=== PATIENT | male | born 1975 | race Caucasian/White ===

== ENCOUNTER 2019-12-19 22:10 | Emergency (ER) | payer BC ==
--- NOTE | 2019-12-19 22:32 | EDM.PDOC ---
ED HPI GENERAL MEDICAL PROBLEM - General Chief Complaint: Chest Pain Stated Complaint: CHEST PAIN,LEFT ARM NUMBNESS AND DIFFICULTY IN [place] Time Seen by Provider: 12/19/19 22:30 Source of Information: Reports: Patient History Limitations: Reports: No Limitations - History of Present Illness INITIAL COMMENTS - FREE TEXT/NARRATIVE: 44-year-old male presents to the ED after experiencing acute onset of central sharp stabbing chest pain about an hour prior to arrival. Her portion of the pain lasted a good 5 minutes or more. Blood pressure was checked by his who is a nurse and has been running a little bit high. It was markedly elevated of course after he developed chest pain. 172 systolic over 100. He states he was not doing anything at the time the pain came on. Associated symptoms were numbness and tingling in his left arm and hand which are still present but are much less intense at this time pain was piercing like he had been shot by an arrow. He does not recall it going through his back however. Denies cough or sputum production. No fever or chills. Reports he is just generally not been feeling well for about 2 weeks. States he is lost all of his energy. Came home from work early today because he was feeling ill. He has been getting intermittent nausea not necessarily made worse or better by eating. He can come at any time. Is not aware of any increased heartburn or GERD symptoms lately. Stools have been normal. No fever or chills. At the time he was seen in the ED his chest pain was pretty well gone. Triage had done an ECG which shows sinus rhythm at 73/min with borderline left ventricular appear to be pattern with a day fix early repolarization pattern but no signs of ischemia. Onset: Today, Sudden Onset Date: 12/19/19 Onset Time: 21:40 Duration: Minutes:, Improving Location: Reports: Chest (Pain had pretty well been gone at the time of my examination. Onset of such middle sharp stabbing chest pain with no radiation.) Quality: Reports: Sharp, Stabbing Severity: Severe (Rates it as an out of 10.) Improves with: Reports: None Worsens with: Reports: None Context: Denies: Activity, Exercise, Lifting, Sick Contact, Trauma, Other Associated Symptoms: Reports: Loss of Appetite, Malaise, Nausea/Vomiting, Shortness of Breath (Social with the severity of the chest pain.), Weakness. Denies: Cough, cough w sputum, Diaphoresis (Nausea without vomiting), Fever/Chills, Headaches, Rash, Seizure, Syncope Treatments [employer]PERINTENDENT: Reports: Other (see below) (None.) Mid-Sternal Chest Pain Score (Numeric/FACES): 3 - Related Data Allergies Allergy/AdvReac Type Severity Reaction Status Date / Time Sulfa (Sulfonamide Allergy Headache Verified 12/19/19 22:18 Antibiotics) Home Meds: Home Meds . [No Known Home Meds] 12/19/19 [History] Past Medical History - Past Surgical History Neurological Surgical History: Reports: Discectomy Social & Family History - Tobacco Use Smoking Status *Q: Former Smoker Used Tobacco, but Quit: Yes Month/Year Tobacco Last Used: 2017 - Recreational Drug Use Recreational Drug Use: No - Living Situation & Occupation Living situation: Reports: Occupation: Employed ED ROS GENERAL - Review of Systems Review Of Systems: See Below Constitutional: Reports: Malaise, Fatigue, Decreased Appetite. Denies: Fever, Chills, Weight Loss HEENT: Reports: Glasses. Denies: Hearing Loss, Nosebleed, Nose Pain, Throat Swelling Respiratory: Reports: Shortness of Breath. Denies: Wheezing, Pleuritic Chest Pain, Cough, Sputum, Hemoptysis, Other Cardiovascular: Reports: Chest Pain, Lightheadedness. Denies: Blood Pressure Problem (Tonight experienced sharp stabbing chest pain as mentioned in history of present illness.), Claudication, Dyspnea on Exertion, Edema, Orthopnea, Palpitations Endocrine: Reports: Fatigue GI/Abdominal: Reports: Decreased Appetite, Nausea (Intermittent nausea.) : Reports: No Symptoms Musculoskeletal: Reports: Back Pain (Previous L-spine discectomy.) Skin: Reports: No Symptoms Neurological: Reports: No Symptoms, Numbness, Tingling Psychiatric: Reports: No Symptoms Hematologic/Lymphatic: Reports: No Symptoms Immunologic: Reports: No Symptoms (Paresthesias left arm and hand associate with the development of the sharp stabbing chest pain tonight.) ED EXAM, GENERAL - Physical Exam Exam: See Below Exam Limited By: No Limitations General Appearance: Alert, WD/WN, Anxious, Moderate Distress, Other (Temperature is 35.8. Heart rate 80 in sinus respiratory is 12 O2 sats 100% on room air. Current blood pressure is elevated 164 114.) Eye Exam: Bilateral Eye: Normal Inspection, PERRL Throat/Mouth: Normal Inspection, Normal Lips, Normal Teeth, Normal Oropharynx Head: Atraumatic, Normocephalic Neck: Normal Inspection, Supple, Non-Tender, Full Range of Motion. No: Carotid Bruit, Lymphadenopathy (L), Lymphadenopathy (R), Thyromegaly Respiratory/Chest: No Respiratory Distress, Lungs Clear, Normal Breath Sounds, No Accessory Muscle Use, Chest Non-Tender Cardiovascular: Normal Peripheral Pulses, Regular Rate, Rhythm, No Edema, No Gallop, No Murmur, No Rub, Other (I could not elicit any chest wall pain upon palpation of anterior ribs or sternum.) Peripheral Pulses: 3+: Carotid (L), Carotid (R), Posterior Tibial (L), Posterior Tibial (R), Dorsalis Pedis (L), Dorsalis Pedis (R) GI/Abdominal: Normal Bowel Sounds, Soft, Non-Tender, No Organomegaly, No Distention, No Abnormal Bruit, No Mass, Pelvis Stable, Other (No surgical scars.) Back Exam: Normal Inspection, Full Range of Motion. No: CVA Tenderness (L), CVA Tenderness (R) Extremities: Normal Inspection, Normal Range of Motion, Non-Tender, No Pedal Edema Neurological: Alert, Oriented, CN II-XII Intact, Normal Cognition Psychiatric: Anxious Skin Exam: Warm, Dry, Intact, Normal Color, No Rash EKG INTERPRETATION EKG Date: 12/19/19 Time: 10:22 Rhythm: NSR Rate (Beats/Min): 73 Mora: Normal P-Wave: Present QRS: Other ST-T: Other (Order line criteria for left ventricular hypertrophy. Fuhs early repolarization pattern with no signs of ischemia) QT: Normal EKG Interpretation Comments: Borderline ECG with no signs of ischemia. Course - Vital Signs Last Recorded V/S: Last Vital Signs Temp 35.8 C L 12/19/19 22:19 Pulse 80 12/19/19 22:19 Resp 12 12/19/19 22:19 BP 164/114 H 12/19/19 22:19 Pulse Ox 100 12/19/19 22:19 - Orders/Labs/Meds Orders: Active Orders 24 hr Category Date Time Status EKG 12 Lead [EKG Documentation Completion] [RC] STAT Care 12/19/19 22:22 Active Chest 1V Frontal [CR] Stat Exams 12/19/19 22:31 Taken H.PYLORI ANTIGEN, STOOL [OP] Stat Lab 12/20/19 00:16 Ordered Sodium Chloride 0.9% [Normal Saline] 1,000 ml Med 12/19/19 22:45 Active IV ASDIRECTED Medication Orders Sodium Chloride (Normal Saline) 1,000 mls @ 125 mls/hr IV ASDIRECTED SALOME Last Admin: 12/19/19 22:37 Dose: 125 mls/hr Documented by: LORI Labs: Laboratory Tests 12/19/19 12/19/19 12/19/19 Range/Units 20:21 20:21 20:21 WBC 7.28 (4.23-9.07) K/mm3 RBC 5.23 (4.63-6.08) M/mm3 Hgb 15.9 (13.7-17.5) gm/dl Hct 46.5 (40.1-51.0) % MCV 88.9 (79.0-92.2) fl MCH 30.4 (25.7-32.2) pg MCHC 34.2 (32.2-35.5) g/dl RDW Std Deviation 40.0 (35.1-43.9) fL Plt Count 207 (163-337) K/mm3 MPV 10.1 (9.4-12.3) fl Neut % (Auto) 69.6 H (34.0-67.9) % Lymph % (Auto) 18.0 L (21.8-53.1) % [place] % (Auto) 10.0 (5.3-12.2) % Eos % (Auto) 1.6 (0.8-7.0) Baso % (Auto) 0.4 (0.1-1.2) % Neut # (Auto) 5.06 (1.78-5.38) K/mm3 Lymph # (Auto) 1.31 L (1.32-3.57) K/mm3 [place] # (Auto) 0.73 (0.30-0.82) K/mm3 Eos # (Auto) 0.12 (0.04-0.54) K/mm3 Baso # (Auto) 0.03 (0.01-0.08) K/mm3 PT 10.1 (9.7-12.0) SECONDS INR 0.94 APTT 27 (22-31) SECONDS Sodium 137 (136-145) mEq/L Potassium 3.9 (3.5-5.1) mEq/L Chloride 102 (98-107) mEq/L Carbon Dioxide 28 (21-32) mEq/L Anion Gap 10.9 (5-15) BUN 14 (7-18) mg/dL Creatinine 1.2 (0.7-1.3) mg/dL Est Cr Clr Drug Dosing 86.93 mL/min Estimated GFR (MDRD) > 60 (>60) mL/min BUN/Creatinine Ratio 11.7 L (14-18) Glucose 106 (74-106) mg/dL Calcium 9.2 (8.5-10.1) mg/dL Magnesium (1.8-2.4) mg/dl Total Bilirubin 0.4 (0.2-1.0) mg/dL AST 44 H (15-37) U/L ALT 86 H (16-63) U/L Alkaline Phosphatase 102 (46-116) U/L Creatine Kinase (39-308) U/L CK-MB (CK-2) (0-3.6) ng/ml Troponin I < 0.017 (0.00-0.056) ng/mL C-Reactive Protein (<1.0) mg/dL Total Protein 7.9 (6.4-8.2) g/dl Albumin 4.2 (3.4-5.0) g/dl Globulin 3.7 gm/dL Albumin/Globulin Ratio 1.1 (1-2) TSH 3rd Generation (0.358-3.74) uIU/mL 12/19/19 12/19/19 Range/Units 20:21 20:21 WBC (4.23-9.07) K/mm3 RBC (4.63-6.08) M/mm3 Hgb (13.7-17.5) gm/dl Hct (40.1-51.0) % MCV (79.0-92.2) fl MCH (25.7-32.2) pg MCHC (32.2-35.5) g/dl RDW Std Deviation (35.1-43.9) fL Plt Count (163-337) K/mm3 MPV (9.4-12.3) fl Neut % (Auto) (34.0-67.9) % Lymph % (Auto) (21.8-53.1) % [place] % (Auto) (5.3-12.2) % Eos % (Auto) (0.8-7.0) Baso % (Auto) (0.1-1.2) % Neut # (Auto) (1.78-5.38) K/mm3 Lymph # (Auto) (1.32-3.57) K/mm3 [place] # (Auto) (0.30-0.82) K/mm3 Eos # (Auto) (0.04-0.54) K/mm3 Baso # (Auto) (0.01-0.08) K/mm3 PT (9.7-12.0) SECONDS INR APTT (22-31) SECONDS Sodium (136-145) mEq/L Potassium (3.5-5.1) mEq/L Chloride (98-107) mEq/L Carbon Dioxide (21-32) mEq/L Anion Gap (5-15) BUN (7-18) mg/dL Creatinine (0.7-1.3) mg/dL Est Cr Clr Drug Dosing mL/min Estimated GFR (MDRD) (>60) mL/min BUN/Creatinine Ratio (14-18) Glucose (74-106) mg/dL Calcium (8.5-10.1) mg/dL Magnesium 1.9 (1.8-2.4) mg/dl Total Bilirubin (0.2-1.0) mg/dL AST (15-37) U/L ALT (16-63) U/L Alkaline Phosphatase (46-116) U/L Creatine Kinase 114 (39-308) U/L CK-MB (CK-2) 1.7 (0-3.6) ng/ml Troponin I (0.00-0.056) ng/mL C-Reactive Protein 0.6 (<1.0) mg/dL Total Protein (6.4-8.2) g/dl Albumin (3.4-5.0) g/dl Globulin gm/dL Albumin/Globulin Ratio (1-2) TSH 3rd Generation 2.600 (0.358-3.74) uIU/mL Meds: Medications Generic Name Dose Route Start Last Admin Trade Name Freq PRN Reason Stop Dose Admin Sodium Chloride 1,000 mls @ 125 mls/hr 12/19/19 22:45 12/19/19 22:37 Normal Saline IV 125 mls/hr ASDIRECTED SALOME Administration - Radiology Interpretation Free Text/Narrative:: 44-year-old male attends the ED tonight due to sudden onset of severe sharp stabbing central chest pain that occurred about an hour before arrival in the ED. He was not doing anything in particular at the time. Pain was very intense for good 5 minutes. Blood pressure was noted to be markedly elevated by his after this event. It remains elevated upon arrival in the ED at 164/114. Pain had just about gone away at the time I had seen him. He denies cough sputum production shortness of breath or having any asthma. No associated fever or chills. Examination reveals no ability to localize pain in the chest wall. Air entry is equal bilaterally with good lung sounds. ECG shows sinus rhythm at 73/min with no signs of ischemia. Plan routine labs including cardiac markers to be done. The patient has been feeling well for 2 or 3 weeks with fatigue intermittent nausea without vomiting decreased appetite ,lethargy etc. Usually he enjoys good health. He has some chronic back pain problems which are much better since he had L-spine discectomy. He will have a chest x-ray done portably. Routine labs will be collected. At this time no meds will be given. - Re-Assessments/Exams Free Text/Narrative Re-Assessment/Exam: 12/19/19 23:44 Labs are back. White count is normal at 7.28 with 70% neutrophils and no band cells reported hemoglobin 15.9 with hematocrit of 46.5. Platelet count 207,000. PT is 10.1 with an INR of 0.94. PTT is 27. Sodium is 137 with a potassium of 3.9. Chloride 102 with a bicarb of 28. Anion gap is 10.9. BUN is 14 with a creatinine of 1.2. GFR is greater than 60. Glucose is 106 with a calcium of 9.2. Magnesium is normal at 1.9. Total bilirubin is 0.4 AST slightly elevated at 44 and ALT is elevated at 86. Alk phosphatase is 102. CPK is 114. CK-MB fraction was 1.7 and troponin I was less than 0.017. C- reactive protein 0.6. Total protein 7.9 with an albumin fraction of 4.2. TSH is normal at 2.6. 12/19/19 23:54 The results of the tests with the patient. Of note he states he was on Prilosec for almost 15 years and went off 3 4 years ago and has not had a real bad problem with reflux esophagitis. If he does get heartburn now he takes Tums or Rolaids or Amanda-Donie. I am going to have the patient collect a stool sample for H. pylori infection at home and then bring it into the lab for analysis. Advised him to start Pepcid 20 mg once daily at bedtime as I suspect he may have occult reflux disease causing esophageal spasm and nausea and loss of appetite. He appears to me to be somewhat depressed but we did get into that discussion deeply. 12/20/19 00:27 she was able to produce a stool sample while in the ED and therefore it will be sent for H. pylori antigen tonight. Answer should be back tomorrow. Departure - Departure Time of Disposition: 23:55 Disposition: Home, Self-Care 01 Condition: Fair Clinical Impression: Non-cardiac chest pain, Dyspepsia and disorder of function of stomach Instructions: Nonspecific Chest Pain, Adult Referrals: PCP,None [Primary Care Provider] - Forms: ED Department Discharge Additional Instructions: Evaluation in the emergency room today in regards to sudden onset of sharp stabbing central chest pain that occurred approximate hour prior to coming to the ED and lasted a good 5 minutes and then slowly got better over period of an hour. No associated cough fever chills or shortness of breath. Blood pressure was elevated at time of arrival in the ED due to stress response from adrenaline induced by pain. Blood pressure did slowly come down to 143/93 while in the ED. This is mildly high. Advised to keep an eye on this at home over the next several weeks. ECG and chest x-ray were normal lab tests all proved to be normal including normal thyroid function , kidney function and normal electrolyte status. Cardiac enzyme analysis was normal with no evidence of heart related illness. Therefore the cause of your acute stabbing chest pain is unclear however sharp stabbing pain usually means some things went into spasm such as the esophagus or muscles in the wall of the chest. I suspect you may be refluxing during the night and have esophagitis which caused the intense pain tonight. Suggest using Pepcid 20 mg once daily every night at bedtime. One other test that would be advised to have done is a H. pylori stool analysis to see if this bacteria is living in your stomach causing reflux and indigestion and nausea for no good reason. The sample can be collected at home brought to the hospital lab for analysis. Usually takes a day and a half to get an answer back. If this is the case then you would need treatment with proton pump inhibitors such as Prilosec or Protonix and 2 different antibiotics to clear up this infection. Follow-up with personal care physician if any further problems occur Sepsis Event Note (ED) - Evaluation Sepsis Screening Result: No Definite Risk - Focused Exam Vital Signs: Vital Signs Temp Pulse Resp BP Pulse Ox 12/19/19 22:19 35.8 C L 80 12 164/114 H 100 - My Orders Last 24 Hours: My Active Orders 12/19/19 22:22 EKG 12 Lead [EKG Documentation Completion] [RC] STAT 12/19/19 22:31 Chest 1V Frontal [CR] Stat 12/19/19 22:45 Sodium Chloride 0.9% [Normal Saline] 1,000 ml IV ASDIRECTED 12/20/19 00:16 H.PYLORI ANTIGEN, STOOL [OP] Stat - Assessment/Plan Last 24 Hours: My Active Orders 12/19/19 22:22 EKG 12 Lead [EKG Documentation Completion] [RC] STAT 12/19/19 22:31 Chest 1V Frontal [CR] Stat 12/19/19 22:45 Sodium Chloride 0.9% [Normal Saline] 1,000 ml IV ASDIRECTED 12/20/19 00:16 H.PYLORI ANTIGEN, STOOL [OP] Stat
[2019-12-19] MEDS ORDERED: Sodium Chloride 0.9% 1,000 ML IV SCH (22:45)
--- NOTE | 2019-12-20 06:57 | CR ---
Chest: Frontal view of the chest was obtained. Comparison: No prior chest imaging is available. Heart size and mediastinum are normal. Lungs are clear with no acute parenchymal change. Bony structures are grossly intact. No pneumothorax is identified. Impression: 1. Nothing acute is seen on frontal chest x-ray. Diagnostic code #1 This report was dictated in MDT
== END 2019-12-20 00:15 | disposition home or self-care (01) ==
LOC: JD.ED 22:10
DX: R07.89 Other chest pain (principal); K31.9 Disease of stomach and duodenum, unspecified; R10.13 Epigastric pain; Z88.2 Allergy status to sulfonamides; Z87.891 Personal history of nicotine dependence
CPT/HCPCS: 36415; 71045; 80053; 82550; 82553; 83735; 84443; 84484; 85025; 85610; 85730; 86140; 87338; 93005; 96360; 96361; 99285; J7030; 93010; 99283